=== PATIENT | female | born 1970 | race American Indian/Alaskan Native ===

== ENCOUNTER → 2016-08-12 | Emergency (ER) | payer OTHER ==
[~2016-08-12] MED LIST: ALPRAZOLAM0.5 MG PO; AMBIEN5 MG PO; CIPRO500 MG PO; CYCLOBENZAPRINE30 MG PO; GABAPENTIN600 MG PO; IBUPROFEN800 MG PO; METFORMIN HCL500 MG PO; METHOCARBAMOL500 MG PO; TYLENOL WITH C1 EACH PO
== END ==
LOC: ED 13:39
DX: N39.0 Urinary tract infection, site not specified (principal); E11.9 Type 2 diabetes mellitus without complications; Z88.5 Allergy status to narcotic agent; Z90.49 Acquired absence of other specified parts of digestive tract; Z79.84 Long term (current) use of oral hypoglycemic drugs; Z79.899 Other long term (current) drug therapy
CPT/HCPCS: 81001; 87088; 96372; 99283; J1885

== ENCOUNTER 2017-08-17 23:21 | Emergency (ER) | payer BC, OTHER ==
[~2017-08-17] VITALS: Ht 167.6 cm; Wt 100.7 kg
[2017-08-17] MEDS ORDERED: GLIPIZIDE XL10 MG PO (23:37)
[2017-08-17] MEDS ORDERED: JANUMET XR 50-1 EAC1 PO (23:37)
[2017-08-17] MEDS ORDERED: IBUPROFEN800 MG PO (23:38)
[2017-08-18] MEDS ORDERED: NORCO 5-325 TA1 EACH PO (02:45)
[2017-08-18] MEDS ORDERED: ACETAMINOPHEN-1 EAC1 PO (02:57)
== END 2017-08-18 03:25 | disposition home or self-care (01) ==
LOC: ED 23:21
DX: R25.2 Cramp and spasm (principal); E11.9 Type 2 diabetes mellitus without complications; F17.200 Nicotine dependence, unspecified, uncomplicated; Z88.5 Allergy status to narcotic agent; Z79.899 Other long term (current) drug therapy; Z79.84 Long term (current) use of oral hypoglycemic drugs
CPT/HCPCS: 80053; 81001; 83735; 85025; 96361; 96374; 96375; 99282; J1200; J2270; J2405; J3475; J7030

== ENCOUNTER 2020-05-17 11:55 | Day surgery (SDC) | payer BC, OTHER ==
[~2020-05-17] VITALS: Ht 167.6 cm; Wt 97.0 kg
[~2020-05-17 11:55] MED LIST changes: +ACETAMINOPHEN-1 EAC1 PO; +GLIPIZIDE XL10 MG PO; +JANUMET 50-5001 EACH PO; +JANUMET XR 50-1 EAC1 PO; +NORCO 5-325 TA1 EACH PO
--- NOTE | 2020-05-17 13:01 | NUR ---
05/17/20 1301 Sonam Zepeda 1250 PT TO PACU AWAKE AND ALERT TALKING AND MOVING ALL EXTREMITIES.
--- NOTE | 2020-05-29 16:03 | PATH ---
[facility] [address] [place], [place] [address] Signed THIS IS AN ADDENDUM REPORT SPECIMEN(S): A BONE MARROW - CORE SPECIMEN(S): B BONE MARROW - ASPIRATION SPECIMEN(S): C FLOW CYTOMETRY, BM EDTA ASP CLINICAL HISTORY: Bone marrow biopsy. 49-year-old female with positive SPEP IgG-Ossun. Evaluate MM vs. MGUS. See attached. C90.00 (multiple myeloma not having achieved remission) DIAGNOSIS SUMMARY: Peripheral blood - Unremarkable. - No circulating blasts or plasma cells are noted. Bone marrow biopsy and aspiration: - Normocellular marrow, 50%, with less than 1% blasts. - Trilineage hematopoiesis with no significant dyspoiesis. - 5% plasma cells, polyclonal by JUAN DAVID stains and flow cytometry. - Congo Red stain is negative for amyloid. - No malignancy is identified. - See comment. DIAGNOSTIC COMMENT: No malignancy is identified by morphology, flow cytometry, or immunohistochemistry/JUAN DAVID stains. 5% plasma cells are noted but by flow cytometry and by JUAN DAVID stains, these plasma cells appear polyclonal. Pending tests include chromosome analysis and a FISH panel for myeloma. Clinical correlation with these tests is needed to exclude an evolving plasma cell neoplasm. HISTORICAL SUMMARY: 49 yo female who in evaluation for chronic pain was discovered to have a M-spike, IgG Ossun. No anemia, hypercalcemia, or renal insufficiency is clinically identified. This bone marrow is to evaluate the IgG Ossun M-spike. PERIPHERAL BLOOD: HEMOGRAM (05/17/2020): WBC 9.1 K/ul, RBC 4.37 M/ul, HGB 13.4 g/dl, HCT 40.1%, MCV 91.8 fl, MCH 30.8 pg, MCHC 33.5 g/dl, RDW 14.0%, PLT 432 K/ul, MPV 8.1 fl. PATIENT NAME: ALISIA VALDEZ PATHOLOGY DATE OF : 70 REPORT #: [id number] PHYSICIAN: MOE PATHOLOGY PCP: GRACIELA SANTAMARIA MD REPORT IS CONFIDENTIAL AND NOT TO BE RELEASED WITHOUT AUTHORIZATION [facility] [address] [place], [place] [address] Signed AUTOMATED DIFFERENTIAL COUNT: Neutrophils 54.8%, lymphocytes 36.0%, monocytes 5.6%, eosinophils 2.9%, basophils 0.7%. The red blood cells are normocytic and normochromic with minimal aniso-poikilocytosis. The neutrophils are unremarkable. Lymphocytes are composed of small mature appearing forms. Platelets appear normal in number and morphology with no platelet clumping or RBC microangiopathic effect identified. No blasts or plasma cells are identified. BONE MARROW: ASPIRATE SMEARS/TOUCH IMPRINT: The aspirate smears are adequate for evaluation. Scattered erythroid precursors show adequate maturation with essentially normal morphology. The myeloid precursors show full maturation with unremarkable morphology. There is no increase in blasts. Plasma cells are mildly increased in number with a normal morphology. Megakaryocytes are identified with a normal morphology. BONE MARROW DIFFERENTIAL COUNT (300 cells): Blasts Less than 1%. promyelocytes Less than 1%, myelocytes 6%, metamyelocytes/bands/segs 39%, erythroid precursors 25%, lymphocytes 18%, monocytes 2%, eosinophils 5%, plasma cells 5%. M:E ratio: 2:1 BONE MARROW CORE BIOPSY/ASPIRATE CLOT/CELL BLOCK: The aspirate clot section and the core biopsy are adequate for evaluation. The core biopsy demonstrates unremarkable trabecular bone. The cellularity is normal for age, estimated at 50%. The erythroid precursors are within normal limits with essentially unremarkable maturation. The myeloid precursors are unremarkable with no significant dyspoiesis. Blasts are not increased. Megakaryocytes appear normal in number and in morphology. No granulomas or foreign malignant cells are detected. The clot section reveals focal circumscribed, fairly small, lymphoid aggregates composed of small mature appearing lymphocytes. A panel of stains are performed (results below). A reactive process for the lymphoid aggregates is favored. SPECIAL STAINS (with adequate controls): - iron (aspirate smear): Mildly increased. No ring sideroblasts. - iron (aspirate clot): Normal. - Congo Red (block A1): Negative. IMMUNOHISTOCHEMISTRY STAINS Block A1 - CD138 (plasma cells): 5% JUAN DAVID stains (Block A1) PATIENT NAME: ALISIA VALDEZ PATHOLOGY DATE OF : 70 REPORT #: [id number] PHYSICIAN: MOE PATHOLOGY PCP: GRACIELA SANTAMARIA MD REPORT IS CONFIDENTIAL AND NOT TO BE RELEASED WITHOUT AUTHORIZATION [address] [address] Signed JUAN DAVID Ossun and Lambda (light chains): Polyclonal. Block B1 - PAX 5 (B-cells): 2% overall. Dim marking in lymphoid aggregates - CD3 (T-cells): Overall 5%, strong marking in lymphoid aggregates. FLOW CYTOMETRY: Bone marrow, flow cytometry: - No plasma cell or lymphoid clonality is detected. - See Comment. COMMENT: 3.1% polyclonal plasma cells are detected. No plasma cell clonality is identified. The majority of the gated lymphocytes are T-cells with an essentially normal marking pattern. The B-cells are unremarkable with no light chain restriction or aberrant marking. Blasts are not increased. The myeloid and monocyte resendez are unremarkable. FLOW CYTOMETRY ANALYSIS: FLOW DIFFERENTIAL (% Total CD45 vs. SSC gating): Myeloid 74%; Lymphoid 12%; Monocyte 3%; Dim CD45/Blast: 2%. Cell Count: 8.0 x 10*3/uL. POPULATION ANALYSIS: BLASTS: Analysis of the dim CD45 gate demonstrates 2% myeloblasts and 3% hematogones. LYMPHOID CELLS: The lymphocyte gate comprises 12% of total events and includes 74% T-cells with a CD4:CD8 ratio of 0.8:1 and normal moreno T-cell antigen expression. 23% of lymphocytes are polyclonal B-cells with a kappa:lambda ratio of 1.5:1. The remainders are NK-cells. MYELOID CELLS: The myeloid population comprises 74% of the total events. No aberrant or immature immunophenotypic expression is detected. MONOCYTES: The monocyte population comprises 3% of the total events. Monocytes are not increased. No aberrant immunophenotypic expression is detected. PLASMA CELLS: There is a noted concern for plasma cell dyscrasia. For this reason, select additional antibodies are run to further characterize the plasma cells. 3.1% polytypic plasma cells are detected (s=[id number]) expressing CD45 DIM-NEG, CD38 BR, CD138 (variable), CD19 MOD (minor subset negative) and CD56 MOD (in minor subset) while negative for CD20 with a ckappa:clambda ratio of 1.5:1. Initial Antibodies Used: KAPPA, LAMBDA, CD20, CD10, CD19, CD23, CD38, FMC7, CD16, CD56, CD8, CD5, CD2, CD4, CD7, CD3, CD14, CD33, CD13, HLADR, CD34, CD117, CD15, CD45 Additional Antibodies (necessary for further plasma cell analysis): ckappa, PATIENT NAME: ALISIA VALDEZ PATHOLOGY DATE OF : 70 REPORT #: [id number] PHYSICIAN: MOE PATHOLOGY PCP: GRACIELA SANTAMARIA MD REPORT IS CONFIDENTIAL AND NOT TO BE RELEASED WITHOUT AUTHORIZATION [facility] [address] [place] [place], [place] [address] Signed clambda, CD138. Total Antibodies Used: 27. FINAL DIAGNOSIS PERFORMED BY: Seun Martines MD, May 18 2020 10:48AM TCS CYTOGENETICS: Chromosome analysis is pending and the results will be reported in an addendum. FISH ANALYSIS: A FISH panel for myeloma is pending and the results will be reported in an addendum. GROSS DESCRIPTION: Two specimens are received in two containers, labeled "JM." A. The specimen, labeled "JM, core," is received in formalin and consists of one cylindrical bone core fragment measuring 0.3 cm in diameter and 3.2 cm in length. The specimen is entirely submitted in cassette (A1) following decalcification in Immunocal. B. The specimen, labeled "JM, clot," is received in formalin and consists of thickened clot material measuring 2.8 x 2.2 x 0.6 cm in aggregate. The specimen is filtered and entirely submitted in cassette (B1). Bone marrow inventory also includes: Two peripheral smears, one EDTA tube bone marrow, one EDTA tube peripheral blood, one heparin tube. AT (under the direct supervision of a pathologist) The Gross Description was prepared using a voice recognition system. The report was reviewed for accuracy; however, sound-alike word errors, addition and/or deletions may occur. If there is any question about this report, please contact Client Services. ADDITIONAL NOTES: This test was developed and its performance characteristics determined by [facility]. It has not been cleared or approved by the US Food and Drug Administration. The FDA does not require this test to go through premarket FDA review. This test is used for clinical purposes. It should not be regarded as investigational or for research. This laboratory is certified under the Clinical Laboratory Improvement Amendments (CLIA) as qualified to perform high complexity clinical laboratory testing. PATIENT NAME: ALISIA VALDEZ PATHOLOGY DATE OF : 70 REPORT #: [id number] PHYSICIAN: MOE PALACIOS PCP: GRACIELA SANTAMARIA MD REPORT IS CONFIDENTIAL AND NOT TO BE RELEASED WITHOUT AUTHORIZATION [address] [address] Signed PERFORMING LABORATORY: The technical component was performed by [facility], [address] [place] [id number] (Lithographing Machine Operator: Eliseo Menon D.O.; CLIA#: [id number]). Professional interpretation was performed at [facility], [address] [place] [id number] IMAGES: A: [id number] A: [id number] REASON FOR ADDENDUM: To add results of additional testing. Bone marrow aspirate, FISH (fluorescence in situ hybridization) Result: Normal* - low cell count Multiple Myeloma panel Interpretation: - There is no evidence of an abnormal cell clone containing any of these aberrations associated with plasma cell neoplasia at the sensitivity level of this analysis in the CD138 enriched cell fraction of this specimen. - *Due to the paucity of cells available for analysis, these findings have to be interpreted with caution. - Clinical and hematopathology correlation is recommended. CD138+ plasma cells were isolated by magnetic-activated cell sorting using anti-CD138 immunobeads and a magnetic-activated cell sorter ([employer]) separation system. Interphase FISH (fluorescence in situ hybridization) was performed to assess this specimen for the presence of cytogenetic aberrations in the non-dividing cell population. Hybridization was performed using the CDKN2C(G)/CKS1B(R), [id number] (13q14.2, R), and TP53(R)/D17Z1(G) gene probes to look for deletion/loss of these regions or chromosomes. The D3Z1(R) and D15Z4(G) centromere probes were used to determine gains of chromosomes 3 and 15. The 13q34(G) probe was run as the control for [id number] and to distinguish between deletion 13q and monosomy 13. FISH was also performed using the CCND1(R)/IGH(G) and the FGFR3(R)/IGH(G) probe sets, to look for t(11;14) and t(4;14) rearrangements, respectively, or alternative IGH gene rearrangements. 05/24/20 15:20 Please note, that aberrations in different cell populations (including CD138- PATIENT NAME: ALISIA VALDEZ PATHOLOGY DATE OF : 70 REPORT #: [id number] PHYSICIAN: MOE PATHOLOGY PCP: GRACIELA SANTAMARIA MD REPORT IS CONFIDENTIAL AND NOT TO BE RELEASED WITHOUT AUTHORIZATION [facility] [address] [place], [place] [address] Signed plasma cell populations) cannot be ruled-out with this analysis. FISH Analysis Summary: Number of Cells Analyzed: 15-89; Cells Analyzed: Interphase; Probes Utilized: [id number],13q34, FGFR3/IGH, TP53-P, CCND1/IGH, CDKN2C,CKS1B, D3Z1+D15Z4; Source and Lot Number: [employer], [id number], [id number], [id number], [id number], [id number], [id number]; Control Probe Utilized: database The technical and professional components of the FISH study were performed at [facility] ([place], [place], case #[id number]). Detailed report is kept on file. To add results of additional testing. Bone marrow aspirate, CYTOGENETIC ANALYSIS Result: 46,XX[20] Normal female karyotype Interpretation: Twenty normal cells were observed. There was no evidence of any chromosome abnormality within the limits of this study. Cytogenetic Analysis Summary: Number of Cells Imaged and Analyzed: 20 Number of Cultures used for Analysis: 2 Number of Karyograms: 4 Banding Level: 350-375 Extra Cells Analyzed /Scored: 0 Banding Method: GTW/G The technical and professional components of the cytogenetics analysis were performed at [facility] ([place], [place], case #[id number]). Detailed report is kept on file. Diagnostician: Seun Martines MD Pathologist Electronically Signed 05/29/2020 Copies: ~ PATIENT NAME: ALISIA VALDEZ PATHOLOGY DATE OF : 70 REPORT #: [id number] PHYSICIAN: MOE PATHOLOGY PCP: GRACIELA SANTAMARIA MD REPORT IS CONFIDENTIAL AND NOT TO BE RELEASED WITHOUT AUTHORIZATION
== END 2020-05-17 13:40 | disposition home or self-care (01) ==
LOC: OPS 11:55 → DS 11:55 → OPS 12:00
PROVIDERS: ATTEND Specialist
PROC: 079T3ZX Drainage of Bone Marrow, Percutaneous Approach, Diagnostic (ICD-10-PCS; 2020-05-17)
PROC: 07DR3ZX Extraction of Iliac Bone Marrow, Percutaneous Approach, Diagnostic (ICD-10-PCS; principal; 2020-05-17 12:00)
DX: C90.00 Multiple myeloma not having achieved remission (principal); E11.9 Type 2 diabetes mellitus without complications; F17.200 Nicotine dependence, unspecified, uncomplicated; Z88.5 Allergy status to narcotic agent; Z91.030 Bee allergy status; Z79.84 Long term (current) use of oral hypoglycemic drugs
CPT/HCPCS: 82232; 83615; 83883; 84703; 85025; 99153; G0500; J2250; J3010; J7121

== ENCOUNTER 2020-07-24 13:26 | Emergency (ER) | payer BC, OTHER ==
[~2020-07-24] VITALS: Ht 167.6 cm; Wt 96.6 kg
[2020-07-24] MEDS ORDERED: ATORVASTATIN CA20 MG PO (15:43)
[2020-07-24] MEDS ORDERED: TIZANIDINE HCL4 MG (15:44)
[2020-07-24] MEDS ORDERED: LISINOPRIL10 MG PO (15:44)
[2020-07-24] MEDS ORDERED: TRAMADOL HCL50 MG PO (15:44)
[2020-07-24] MEDS ORDERED: CYCLOBENZAPRINE10 MG PO (15:45)
[2020-07-24] MEDS ORDERED: PREDNISONE10 MG PO (15:45)
[2020-07-24] MEDS ORDERED: CEPHALEXIN500 MG PO (15:46)
[2020-07-24] MEDS ORDERED: PROAIR HFA8.5 GM INH (15:47)
[2020-07-24] MEDS ORDERED: FLUCONAZOLE150 MG PO (15:47)
[2020-07-24] MEDS ORDERED: ONDANSETRON ODT8 MG PO (19:43)
== END 2020-07-24 20:27 | disposition home or self-care (01) ==
LOC: ED 13:26
DX: K52.9 Noninfective gastroenteritis and colitis, unspecified (principal); E11.9 Type 2 diabetes mellitus without complications; F17.200 Nicotine dependence, unspecified, uncomplicated; Z88.5 Allergy status to narcotic agent; Z79.899 Other long term (current) drug therapy; Z79.891 Long term (current) use of opiate analgesic; Z79.52 Long term (current) use of systemic steroids
CPT/HCPCS: 51701; 71045; 80053; 81001; 83735; 85025; 99284-25; J2405; J7030

== ENCOUNTER 2020-11-09 05:45 | Day surgery (SDC) | payer BC, OTHER ==
[~2020-11-09] VITALS: Ht 167.6 cm; Wt 91.0 kg
[~2020-11-09 05:45] MED LIST changes: +ATORVASTATIN CA20 MG PO; +CEPHALEXIN500 MG PO; +CYCLOBENZAPRINE10 MG PO; +FLUCONAZOLE150 MG PO; +LISINOPRIL10 MG PO; +ONDANSETRON ODT8 MG PO; +PREDNISONE10 MG PO; +PROAIR HFA8.5 GM INH; +TIZANIDINE HCL4 MG; +TRAMADOL HCL50 MG PO; +ZYRTEC10 M3 PO
[2020-11-09] MEDS ORDERED: TRAMADOL HCL50 MG PO (07:59)
--- NOTE | 2020-11-09 07:59 | NUR ---
11/09/20 0759 Donta Murphy REORIENTED TO TIME AND SITUATION. PT CRYING BUT CALM. RATES PAIN 0/10. RIGHT FINGER DRESSING REENFORCED WITH 2X2 AND COBAN. ICE AND ELEVATION TO SURGERY SITES ON ENTERING PACU
--- NOTE | 2020-11-10 09:53 | OR ---
[facility] [address] [place], [place] [address] Signed DATE OF OPERATION: 11/09/2020 SURGEON: Uyen Zepeda MD PREOPERATIVE DIAGNOSES: 1. Right index mucous cyst. 2. Left trigger thumb. POSTOPERATIVE DIAGNOSES: 1. Right index mucous cyst. 2. Left trigger thumb. PROCEDURE PERFORMED: Excision of cyst right index finger and trigger thumb release, left. BUILD AND RELEASE MANAGER: None. ANESTHESIA: MAC with Lance block on the left and digital block on the right. TOURNIQUET TIME: 19 minutes for the trigger release. BRIEF HISTORY: Kierra is a 50-year-old female with complaints in her hands. She had undergone nonoperative treatment without substantial relief. Risks and benefits of operative treatment and both were discussed with her and she elected to proceed. DESCRIPTION OF PROCEDURE: Once consent was obtained, she was taken to the operating room after adequate anesthesia. She was placed on operating room table left upper extremity was approached first. After establishment of [place] block, the hand was prepped and draped in the standard sterile fashion. A 1 cm transverse incision was made overlying the A1 frank of the thumb and careful dissection was undertaken to release and protect the digital nerve. The A1 frank was then identified and was released completely. The patient could fully flex and fully extend her finger at the end of this. The wound was copiously irrigated with antibiotic solution, closed with 3-0 nylon and injected with 5 mL of 0.25% plain Marcaine. The wound was dressed with bacitracin, Adaptic 4 x 8s, and gauze. Attention was then turned to the right hand. The right hand was prepped and Electronically Signed By: UYEN ZEPEDA MD 11/10/20 0953 PATIENT NAME: KIERRA VALDEZ OPERATIVE REPORT DATE OF : 70 REPORT #: [id number] PHYSICIAN: UYEN ZEPEDA MD PCP: [facility] REPORT IS CONFIDENTIAL AND NOT TO BE RELEASED WITHOUT AUTHORIZATION [facility] [address] [place], [place] [address] Signed draped in the standard sterile fashion and a finger tourniquet was applied. There was a large mucous cyst on the DIP joint, this was approached dorsally through a longitudinal incision and carried down into the cyst, which was excised. The underlying osteophyte which was fairly sizable, was removed as best we could as well. Once this was accomplished, the wound was copiously irrigated and closed with 3-0 nylon. She did have a digital blocks and no further blocks were placed. The wound was dressed with bacitracin gauze and tube gauze. She tolerated the procedure well. All sponge, needle, and instrument counts were correct. Uyen Zepeda MD BA/GUILHERME /[id number] Copies: ~ Electronically Signed By: UYEN ZEPEDA MD 11/10/20 0953 PATIENT NAME: KIERRA VALDEZ OPERATIVE REPORT DATE OF : 70 REPORT #: [id number] PHYSICIAN: UYEN ZEPEDA MD [facility] REPORT IS CONFIDENTIAL AND NOT TO BE RELEASED WITHOUT AUTHORIZATION
== END 2020-11-09 08:56 | disposition home or self-care (01) ==
LOC: DS 05:45
PROVIDERS: ATTEND Specialist
PROC: 0LN80ZZ Release Left Hand Tendon, Open Approach (ICD-10-PCS; principal; 2020-11-09 06:45)
PROC: 0RBW0ZZ Excision of Right Finger Phalangeal Joint, Open Approach (ICD-10-PCS; 2020-11-09 06:45)
DX: M65.312 Trigger thumb, left thumb (principal); M25.841 Other specified joint disorders, right hand; M19.049 Primary osteoarthritis, unspecified hand; E11.9 Type 2 diabetes mellitus without complications; K21.9 Gastro-esophageal reflux disease without esophagitis; I10 Essential (primary) hypertension; E78.00 Pure hypercholesterolemia, unspecified; F17.210 Nicotine dependence, cigarettes, uncomplicated; Z79.84 Long term (current) use of oral hypoglycemic drugs; Z91.040 Latex allergy status; Z88.5 Allergy status to narcotic agent
CPT/HCPCS: 01820; J0690; J1885; J2001; J2250; J2704; J2795; J7121

== ENCOUNTER 2021-09-25 07:10 | Day surgery (SDC) | payer BC, OTHER ==
[~2021-09-25] VITALS: Ht 167.6 cm; Wt 99.5 kg
[~2021-09-25 07:10] MED LIST changes: +CLARITIN10 M2 PO; +DIFLUCAN150 MG PO; +FLOVENT DISKUS50 MCG INH; +MAGNESIUM OXID400 M1 PO; +NEURONTIN100 MG PO; +NEXIUM20 MG PO
[2021-09-25] MEDS ORDERED: TYLOPHEN500 MG PO (07:59)
--- NOTE | 2021-09-26 07:10 | OR ---
[facility] [address] [place], [place] [address] Signed DATE OF OPERATION: 09/25/2021 SURGEON: Arminda Novoa MD PREOPERATIVE DIAGNOSIS: Screening. POSTOPERATIVE DIAGNOSES: Minimal to moderate internal hemorrhoids. PROCEDURE: Colonoscopy biopsy. ESTIMATED BLOOD LOSS: None. INDICATIONS: Kierra is a 50-year-old obese, diabetic female, asked to see me for her initial screening colonoscopy. She has no lower GI complaints. There is no family history of colon cancer or polyps. She spoke to me about her TMJ and chronic pain requiring alprazolam, Flexeril, tramadol, and tizanidine. She is also allergic to hydrocodone. Consequently, we asked for monitored anesthesia care with propofol infusion. That worked out very well today. In the office, I gave Kierra a pamphlet on colonoscopy. We reviewed the nature of that test. There is risk including, but not limited to gas bloating, crampy abdominal pain, bleeding, perforation requiring surgery, and missed diagnosis. She had expressed understanding wished to proceed. PROCEDURE NOTE: Kierra was taken into the endoscopy suite and placed in the left lateral decubitus position. She was given monitored anesthesia care with propofol per our nurse final tester. A digital rectal exam was performed and this was unremarkable. She has good sphincter tone. There were no external hemorrhoids. The adult colonoscope was then introduced and advanced under direct visualization of the camera. She required just a little abdominal compression in order to advance the scope up into the cecum itself. Her prep was good. The scope had been slowly withdrawn. We took pictures throughout for photodocumentation. We found no pathology and her entire colon or rectum. Upon retroflexion of scope, she does have minimal to moderate internal hemorrhoid columns. After this, the gas was suctioned out and colonoscope removed. Kierra tolerated the procedure quite well. Electronically Signed By: ARMINDA NOVOA MD 09/26/21 0710 PATIENT NAME: KIERRA VALDEZ OPERATIVE REPORT DATE OF : 70 REPORT #: [id number] PHYSICIAN: ARMINDA NOVOA MD PCP: LAKESHIA GAR MD REPORT IS CONFIDENTIAL AND NOT TO BE RELEASED WITHOUT AUTHORIZATION [address] [address] Signed RECOMMENDATIONS: Kierra will follow up in 10 years for repeat screening colonoscopy. Arminda Novoa MD ALB/MODL /[id number] cc: MD Lakeshia Wiley MD Copies: ARMINDA NOVOA MD ~ Electronically Signed By: ARMINDA NOVOA MD 09/26/21 0710 PATIENT NAME: KIERRA VALDEZ OPERATIVE REPORT DATE OF : 70 REPORT #: [id number] PHYSICIAN: ARMINDA NOVOA MD PCP: LAKESHIA GAR MD REPORT IS CONFIDENTIAL AND NOT TO BE RELEASED WITHOUT AUTHORIZATION
== END 2021-09-25 10:20 | disposition home or self-care (01) ==
LOC: DS 07:10 → OPS 07:10 → DS 08:00 → OPS 08:45
PROVIDERS: ATTEND Colon & Rectal Surgery
PROC: 0DJD8ZZ Inspection of Lower Intestinal Tract, Via Natural or Artificial Opening Endoscopic (ICD-10-PCS; principal; 2021-09-25 08:45)
DX: Z12.11 Encounter for screening for malignant neoplasm of colon (principal); K64.8 Other hemorrhoids; E11.9 Type 2 diabetes mellitus without complications; I10 Essential (primary) hypertension; F17.200 Nicotine dependence, unspecified, uncomplicated; E78.2 Mixed hyperlipidemia; M26.609 Unspecified temporomandibular joint disorder, unspecified side; E66.01 Morbid (severe) obesity due to excess calories; Z68.35 Body mass index [BMI] 35.0-35.9, adult; Z79.84 Long term (current) use of oral hypoglycemic drugs; Z88.5 Allergy status to narcotic agent; Z91.030 Bee allergy status
CPT/HCPCS: 84703; J2001; J2405; J2704; J7121

== ENCOUNTER 2023-08-26 12:02 | Emergency (ER) | payer OTHER ==
[~2023-08-26] VITALS: Ht 167.6 cm; Wt 89.8 kg
[~2023-08-26 12:02] MED LIST changes: +TYLOPHEN500 MG PO
--- OUTSIDE RECORDS SUMMARY | 2023-08-26 12:04 | XMS ---
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 [facility] has no Care Guidelines for this patient. Deo VISIT COUNT (12 MO.) 1 SHAE Tejeda TOTAL 1 NOTE: Visits indicate total known visits. ED/C VISIT TRACKING (12 MO.) 08/26/2023 12:03 SHAE Barnes [place] TYPE: Emergency COMPLAINT: - [facility]EE [facility] INPATIENT VISIT TRACKING (12 MO.) No inpatient visits to display in this time frame [email or web address]
[2023-08-26] MEDS ORDERED: SODIUM CHLORIDE 0.9% 500 ML IV ONE (12:15)
[2023-08-26] MEDS ORDERED: methylPREDNISolone SOD SUCC 125 MG/2 ML VIAL IV ONE (12:15)
[2023-08-26] MEDS ORDERED: FAMOTIDINE 20 MG/ 2 ML VIAL IV ONE (12:15)
[2023-08-26] MEDS ORDERED: diphenhydrAMINE HCL 50 MG/ML VIAL IV ONE (12:15)
[2023-08-26] MEDS ORDERED: OZEMPIC0.25 MG/02 SQ (12:40)
[2023-08-26] MEDS ORDERED: METFORMIN HCL500 M2 PO (12:41)
[2023-08-26] MEDS ORDERED: EPIPEN 2-P0.3 MG/0.3 IM (13:03)
[2023-08-26] MEDS ORDERED: KETOROLAC TROMETHAMINE 15 MG/ML VIAL IV ONE (13:30)
[2023-08-26] MEDS ORDERED: ACETAMINOPHEN 500 MG TAB PO ONE (13:30)
[2023-08-26] MEDS ORDERED: HYDROmorphone HCL 1 MG/ML SYR IV ONE (14:00)
[2023-08-26 14:11] VITALS: BP 128/77
== END 2023-08-26 14:22 | disposition home or self-care (01) ==
LOC: ED 12:02
DX: T63.441A Toxic effect of venom of bees, accidental (unintentional), initial encounter (principal); R51.9 Headache, unspecified; E11.9 Type 2 diabetes mellitus without complications; F17.200 Nicotine dependence, unspecified, uncomplicated; Z88.5 Allergy status to narcotic agent; Z91.030 Bee allergy status; Z91.040 Latex allergy status; Z79.899 Other long term (current) drug therapy; Z79.84 Long term (current) use of oral hypoglycemic drugs
CPT/HCPCS: A9270; J1170; J1200; J2919; J7040

== ENCOUNTER 2023-10-07 16:51 | Emergency (ER) | payer OTHER ==
[~2023-10-07] VITALS: Ht 167.6 cm; Wt 92.2 kg
[~2023-10-07 16:51] MED LIST changes: +EPIPEN 2-P0.3 MG/0.3 IM; +METFORMIN HCL500 M2 PO; +OZEMPIC0.25 MG/02 SQ
[2023-10-07] MEDS ORDERED: HYDROmorphone HCL 1 MG/ML SYR IV PRN (18:00)
[2023-10-07 18:12] LABS: BASOPHILS 0.7 % (0-2); EOSINOPHILS 4.6 % (0-6); HEMATOCRIT 38.4 % (35.0-50.0); HEMOGLOBIN 12.9 g/dL (12.0-18.0); LYMPHOCYTES 37.2 % (24-44); MCHC 33.5 g/dl (30-36); MCV 92.6 fl (81-99); MONOCYTES 5.2 % (0-12); NEUTROPHILS 52.3 % (39-80); PLATELET COUNT 424 K/uL (140-440); RBC 4.15 M/ul (4.3-5.7); RDW 14.3 (10.5-15.0)
[2023-10-07 18:30] LABS: ALBUMIN 3.6 g/dL (3.4-5.0); ALBUMIN/GLOBULIN RATIO 0.8 (1.1-2.4); ANION GAP 10.9 (7-21); BILIRUBIN, TOTAL 0.4 ng/dL (0.2-1.0); BUN/CREATININE RATIO 14.81 (6.0-28.6); CALCIUM 9.4 mg/dL (8.5-10.1); CREATININE, SERUM 0.81 mg/dL (0.55-1.02); POTASSIUM 3.9 mmol/L (3.5-5.1); PROTEIN, TOTAL 8.1 g/dL (6.4-8.2)
[2023-10-07] MEDS ORDERED: diphenhydrAMINE HCL 50 MG/ML VIAL IV ONE (19:15)
[2023-10-07] MEDS ORDERED: ACETAMINOPHEN-1 EAC1 PO (19:23)
[2023-10-07 19:42] VITALS: BP 149/95
== END 2023-10-07 19:42 | disposition home or self-care (01) ==
LOC: ED 16:51
PROVIDERS: Emergency Medicine
DX: S63.610A Unspecified sprain of right index finger, initial encounter (principal); S80.02XA Contusion of left knee, initial encounter; E11.9 Type 2 diabetes mellitus without complications; F17.290 Nicotine dependence, other tobacco product, uncomplicated; V89.2XXA Person injured in unspecified motor-vehicle accident, traffic, initial encounter; Z88.5 Allergy status to narcotic agent; Z91.040 Latex allergy status; Z91.030 Bee allergy status; Z79.899 Other long term (current) drug therapy; Z79.84 Long term (current) use of oral hypoglycemic drugs
CPT/HCPCS: 36415; 72125; 73140; 73560; 74177; 80053; 84703; 85025; 96375; 96376; 99284-25; J1170; J1200; Q9967